=== PATIENT | male | born 1950 | race Caucasian/White ===

== ENCOUNTER 2017-04-13 08:18 | Emergency (ER) | payer OTHER ==
[~2017-04-13] VITALS: Ht 165.1 cm; Wt 51.5 kg
[~2017-04-13 08:18] MED LIST: ATOR20TA86 PO; INSLAN SQ; METO5TAB95 PO; PHOSLOC PO; PYRI50 PO; TIMO.5OS OU
[2017-04-13 08:37] LABS: GLUCOSE,POINT OF CARE 184 MG/DL (70-110)
[2017-04-13] MEDS ORDERED: AZIT250T6 PO (08:40)
[2017-04-13] MEDS ORDERED: CHLO25 PO (08:40)
[2017-04-13] MEDS ORDERED: INSU200I SQ (08:40)
[2017-04-13] MEDS ORDERED: OMEP20 PO (08:40)
[2017-04-13] MEDS ORDERED: ASPI-556 PO (08:40)
[2017-04-13] MEDS ORDERED: FLUT16H NASAL (08:40)
[2017-04-13] MEDS ORDERED: TRAM50TA4 PO (08:40)
[2017-04-13 10:31] VITALS: BP 156/74
[2017-04-14] MEDS ORDERED: IOVERSOL 350 MG/ML 100 ML VIAL ONE (06:33)
[2017-04-14] MEDS ORDERED: SODIUM CHLORIDE 0.9% 100 ML ONE (06:33)
== END 2017-04-13 10:51 | disposition home or self-care (01) ==
LOC: EMS 08:22
DX: R31.0 Gross hematuria (principal); E11.22 Type 2 diabetes mellitus with diabetic chronic kidney disease; I12.0 Hypertensive chronic kidney disease with stage 5 chronic kidney disease or end stage renal disease; N18.6 End stage renal disease; E78.00 Pure hypercholesterolemia, unspecified; Z99.2 Dependence on renal dialysis; Z79.4 Long term (current) use of insulin
CPT/HCPCS: 51701; 82962; 99283; J7050

== ENCOUNTER 2017-04-14 04:55 | Inpatient (IN) | payer OTHER ==
[~2017-04-14] VITALS: Ht 165.1 cm; Wt 57.9 kg
[~2017-04-14 04:55] MED LIST changes: +ASPI-556 PO; +AZIT250T6 PO; +CHLO25 PO; +FLUT16H NASAL; +INSU200I SQ; -METO5TAB95 PO; +OMEP20 PO; -PHOSLOC PO; -PYRI50 PO; +TRAM50TA4 PO
[2017-04-14 05:13] LABS: GLUCOSE,POINT OF CARE 213 MG/DL (70-110)
[2017-04-14] MEDS ORDERED: MORPHINE SULFATE 4 MG/ML SYRINGE IVP ONE (06:15)
[2017-04-14] MEDS ORDERED: BARIUM SULFATE 0.1% SUSPENSION 450 ML BOTTLE PO ONE (06:15)
[2017-04-14] MEDS ORDERED: ASPIRIN 81 MG CHEWABLE TABLET PO ONE (06:15)
[2017-04-14] MEDS ORDERED: ONDANSETRON HCL 4 MG/2 ML VIAL IVP ONE (06:15)
[2017-04-14 06:23] LABS: EOSINOPHILS % (AUTO) 0 % (1.0-6.0); LYMPHOCYTES % (AUTO) 7.9 % (22.0-44.0); MEAN CORPUSCULAR HEMOGLOBIN 28.6 pg (26.0-34.0); MEAN CORPUSCULAR HGB CONC 32.3 G/dL (31.0-37.0); MEAN CORPUSCULAR VOLUME 89 fL (80-100); MONOCYTES % (AUTO) 8.4 % (2.0-9.0); NEUTROPHILS # (AUTO) 10.3 K/uL (1.8-7.7); NEUTROPHILS % (AUTO) 83.8 % (40.0-70.0); PLATELET COUNT (AUTO) 301 K/uL (150-450); RED BLOOD CELL COUNT(AUTO) 3.49 MIL/uL (4.50-5.90); RED CELL DISTRIBUTION WIDTH 17.3 % (11.5-14.5); WHITE BLOOD COUNT (AUTO) 12.3 K/uL (4.5-11.0)
[2017-04-14 06:28] LABS: CALCIUM, TOTAL 8.9 mg/dL (8.8-10.5); CREATININE 7.96 mg/dL (0.60-1.30); POTASSIUM 4.8 mmol/L (3.5-5.1)
[2017-04-14 06:29] LABS: INR 1.1 (0.9-1.1)
[2017-04-14 06:33] LABS: BILIRUBIN,TOTAL 0.7 mg/dL (0.1-1.0)
[2017-04-14] MEDS ORDERED: CefTRIAXone 1 GM/DEXTROSE 50 ML IV ONE (08:15)
[2017-04-14] MEDS ORDERED: GENTAMICIN 60 MG/NACL ISO-OSM 50 ML IV ONE (09:00)
[2017-04-14] MEDS ORDERED: MetroNIDAZOLE 500 MG/NACL 100 ML IV ONE (09:00)
[2017-04-14] MEDS ORDERED: PIPERACILLIN/TAZO 3.375 GM/D5W 50 ML IV ONE (09:00)
[2017-04-14] MEDS ORDERED: ONDANSETRON HCL 4 MG/2 ML VIAL IVP PRN ×2 (09:45→11:15)
[2017-04-14] MEDS ORDERED: MORPHINE SULFATE 4 MG/ML SYRINGE IVP PRN (09:45)
[2017-04-14 10:08] LABS: APPEARANCE,URINE TURBID (CLEAR); GLUCOSE, URINE (UA) 100 mg/dL (NEGATIVE); KETONES,URINE 40 mg/dL (NEGATIVE); LEUKOCYTE ESTERASE ,URINE LARGE (NEGATIVE); OCCULT BLOOD,URINE LARGE (NEGATIVE); PROTEIN,URINE SEE CONFIRM (NEGATIVE)
[2017-04-14 10:11] LABS: ADD UA MICROSCOPIC YES
[2017-04-14] MEDS ORDERED: IOHEXOL 240 MG/ML 50 ML VIAL ONE (10:11)
[2017-04-14 10:19] LABS: RBC,URINE Full Field /HPF (0-2); SQUAMOUS EPITHELIAL CELL,UR Few /LPF (None Seen); SULFOSALICYLIC ACID,URINE 3+ (Negative); WBC,URINE >100 /HPF (0-5)
[2017-04-14 10:22] LABS: GLUCOSE,POINT OF CARE 225 MG/DL (70-110)
[2017-04-14] MEDS ORDERED: ACETAMINOPHEN 325 MG TABLET PO PRN (11:15)
[2017-04-14] MEDS ORDERED: ALBUTEROL SULFATE 2.5 MG/0.5 ML NEB SOLUTION NEB PRN (11:15)
[2017-04-14] MEDS ORDERED: MORPHINE SULFATE 2 MG/ML SYRINGE IVP PRN (11:15)
[2017-04-14] MEDS ORDERED: BISACODYL 10 MG RECTAL RECTAL SUPPOSITORY PR PRN (11:15)
[2017-04-14] MEDS ORDERED: OxyCODONE HCL/ACETAMINOPHEN 5-325 MG TABLET PO PRN (11:15)
[2017-04-14] MEDS ORDERED: PIPERACILLIN SODIUM/TAZOBACTAM 0.75 GM in DEXTROSE 5%-WATER 50 ML IV PRN (11:30)
[2017-04-14] MEDS ORDERED: DEXTROSE 50%-WATER 25 GM/50 ML SYRINGE IVP PRN (11:30)
[2017-04-14] MEDS ORDERED: LIDOCAINE HCL/PF 1% 2 ML VIAL INJ ONE (12:00)
[2017-04-14] MEDS ORDERED: FentaNYL CITRATE-PF 100 MCG/2 ML VIAL ONE (12:51)
[2017-04-14] MEDS ORDERED: MIDAZOLAM HCL 2 MG/2 ML VIAL ONE (12:51)
[2017-04-14] MEDS ORDERED: FentaNYL CITRATE-PF 100 MCG/2 ML VIAL IVP ONE (12:59)
[2017-04-14] MEDS ORDERED: MIDAZOLAM HCL 2 MG/2 ML VIAL IVP ONE (12:59)
[2017-04-14] MEDS ORDERED: LIDOCAINE HCL/PF 1% 2 ML VIAL ID PRN (15:15)
[2017-04-14] MEDS ORDERED: ALBUMIN HUMAN 25%-12.5GM/50ML IV BOTTLE IV PRN (15:15)
[2017-04-14] MEDS ORDERED: MANNITOL 25%-12.5 GM/50 ML VIAL IVP PRN (15:15)
[2017-04-14 16:00] VITALS: BP 136/58
[2017-04-14] MEDS: PIPERACILLIN SODIUM/TAZOBACTAM 2.25 GM in DEXTROSE 5%-WATER 50 ML IV SCH (17:40)
[2017-04-14] MEDS ORDERED: SODIUM CHLORIDE 0.9% 250 ML IV ONE (17:40)
[2017-04-14 20:00] VITALS: BP 200/83
[2017-04-14 20:47] LABS: GLUCOSE,POINT OF CARE 113 MG/DL (70-110)
[2017-04-14] MEDS: DOCUSATE SODIUM 100 MG CAPSULE PO SCH (21:43)
[2017-04-14] MEDS: HEPARIN SODIUM,PORCINE 5,000 UNITS/ML VIAL SQ SCH (21:43)
[2017-04-14] MEDS: LEVOFLOXACIN 250 MG/D5% WATER 50 ML IV SCH (21:43)
[2017-04-14] MEDS: INSULIN ASPART 100 UNITS/ML SQ PRN (22:06)
[2017-04-15] VITALS: BP 142/57
[2017-04-15] MEDS: PIPERACILLIN SODIUM/TAZOBACTAM 2.25 GM in DEXTROSE 5%-WATER 50 ML IV SCH ×3 (01:14→16:38)
[2017-04-15 04:00] VITALS: BP 167/77
[2017-04-15 05:38] LABS: CALCIUM, TOTAL 8.5 mg/dL (8.8-10.5); CREATININE 3.82 mg/dL (0.60-1.30); MAGNESIUM 1.9 mg/dL (1.80-2.40); PHOSPHORUS 3.4 mg/dL (2.5-4.9); POTASSIUM 4.7 mmol/L (3.5-5.1)
[2017-04-15 05:39] LABS: BASOPHILS % (AUTO) 0.2 % (0.0-2.0); EOSINOPHILS % (AUTO) 0 % (1.0-6.0); HEMATOCRIT 31.9 % (41-53); HEMOGLOBIN 9.9 g/dL (13.5-17.5); LYMPHOCYTES # (AUTO) 1.2 K/uL (1.0-4.8); LYMPHOCYTES % (AUTO) 8.7 % (22.0-44.0); MEAN CORPUSCULAR HEMOGLOBIN 27.7 pg (26.0-34.0); MEAN CORPUSCULAR HGB CONC 31.2 G/dL (31.0-37.0); MEAN CORPUSCULAR VOLUME 89 fL (80-100); MONOCYTES # (AUTO) 0.9 K/uL (0.1-1.0); MONOCYTES % (AUTO) 6.8 % (2.0-9.0); NEUTROPHILS # (AUTO) 11.2 K/uL (1.8-7.7); NEUTROPHILS % (AUTO) 84.3 % (40.0-70.0); PLATELET COUNT (AUTO) 273 K/uL (150-450); RED BLOOD CELL COUNT(AUTO) 3.58 MIL/uL (4.50-5.90); RED CELL DISTRIBUTION WIDTH 17.7 % (11.5-14.5); WHITE BLOOD COUNT (AUTO) 13.3 K/uL (4.5-11.0)
[2017-04-15 06:41] LABS: GLUCOSE COMMENT 1 Received Meds; GLUCOSE,POINT OF CARE 185 MG/DL (70-110)
[2017-04-15 06:42] LABS: GLUCOSE COMMENT 1 Received Meds; GLUCOSE,POINT OF CARE 152 MG/DL (70-110)
[2017-04-15 08:00] VITALS: BP 137/66
[2017-04-15] MEDS: DOCUSATE SODIUM 100 MG CAPSULE PO SCH ×2 (08:52→21:00)
[2017-04-15] MEDS: MetroNIDAZOLE 250 MG/NACL 50 ML IV SCH ×2 (08:52→20:33)
[2017-04-15] MEDS: HEPARIN SODIUM,PORCINE 5,000 UNITS/ML VIAL SQ SCH ×2 (08:53→21:09)
[2017-04-15] MEDS: INSULIN ASPART 100 UNITS/ML SQ PRN ×2 (08:54→18:09)
[2017-04-15] MEDS ORDERED: -HEMODIALYSIS NOTE- MISC SCH (09:00)
[2017-04-15] MEDS ORDERED: PANTOPRAZOLE SODIUM 40 MG DR TABLET PO SCH (09:00)
[2017-04-15 10:32] LABS: GLUCOSE,POINT OF CARE 142 MG/DL (70-110)
[2017-04-15 12:00] VITALS: BP 137/66
[2017-04-15 12:07] LABS: GLUCOSE,POINT OF CARE 252 MG/DL (70-110)
[2017-04-15 16:00] VITALS: BP 137/66
[2017-04-15 19:12] LABS: GLUCOSE,POINT OF CARE 253 MG/DL (70-110)
[2017-04-15] MEDS: LEVOFLOXACIN 250 MG/D5% WATER 50 ML IV SCH (21:07)
== END 2017-04-15 21:25 | disposition short-term general hospital (02) | DRG 871 ==
LOC: EMS 04:56 → 6N 08:15 → ICU 11:41
PROVIDERS: ADMIT Internal Medicine; ATTEND Internal Medicine
PROC: 0T9030Z Drainage of Right Kidney with Drainage Device, Percutaneous Approach (ICD-10-PCS; principal; 2017-04-14)
PROC: 5A1D00Z (ICD-10-PCS; 2017-04-14)
DX: A41.9 Sepsis, unspecified organism (principal); E43 Unspecified severe protein-calorie malnutrition; N18.6 End stage renal disease; I12.0 Hypertensive chronic kidney disease with stage 5 chronic kidney disease or end stage renal disease; N11.1 Chronic obstructive pyelonephritis; N20.2 Calculus of kidney with calculus of ureter; E11.22 Type 2 diabetes mellitus with diabetic chronic kidney disease; M06.9 Rheumatoid arthritis, unspecified; E11.319 Type 2 diabetes mellitus with unspecified diabetic retinopathy without macular edema; E78.00 Pure hypercholesterolemia, unspecified; M19.90 Unspecified osteoarthritis, unspecified site; R31.0 Gross hematuria; I25.10 Atherosclerotic heart disease of native coronary artery without angina pectoris; H54.42 Blindness, left eye, normal vision right eye; D64.9 Anemia, unspecified; E78.5 Hyperlipidemia, unspecified; Z74.01 Bed confinement status; Z98.49 Cataract extraction status, unspecified eye; Z79.4 Long term (current) use of insulin; Z79.82 Long term (current) use of aspirin; Z79.899 Other long term (current) drug therapy; Z68.21 Body mass index [BMI] 21.0-21.9, adult; Z99.2 Dependence on renal dialysis
CPT/HCPCS: 36245; 51701; 74176; 74177; 75989; 76937; 76942; 82962; 83605; 83735; 84100; 87040; 87081; 87086; 87340; 93005; 96365; 96367; 96368; 99291; J0696; J1580; J1644; J1956; J2250; J2270; J2405; J2543; J3010; J3490; J7050; J7060; Q9966

== ENCOUNTER 2017-08-26 11:13 | Inpatient (IN) | payer OTHER ==
[~2017-08-26] VITALS: Ht 165.1 cm; Wt 47.8 kg
[~2017-08-26 11:13] MED LIST changes: -AZIT250T6 PO; +AZIT250T9 PO
[2017-08-26 11:27] LABS: GLUCOSE,POINT OF CARE 118 MG/DL (70-110)
[2017-08-26 12:42] LABS: BASOPHILS % (AUTO) 0.2 % (0.0-2.0); EOSINOPHILS % (AUTO) 0 % (1.0-6.0); HEMATOCRIT 36.9 % (41-53); HEMOGLOBIN 11.5 g/dL (13.5-17.5); LYMPHOCYTES # (AUTO) 0.4 K/uL (1.0-4.8); LYMPHOCYTES % (AUTO) 5.3 % (22.0-44.0); MEAN CORPUSCULAR HEMOGLOBIN 25.8 pg (26.0-34.0); MEAN CORPUSCULAR HGB CONC 31.3 G/dL (31.0-37.0); MEAN CORPUSCULAR VOLUME 82 fL (80-100); MONOCYTES # (AUTO) 0.6 K/uL (0.1-1.0); MONOCYTES % (AUTO) 9.1 % (2.0-9.0); NEUTROPHILS # (AUTO) 6.1 K/uL (1.8-7.7); PLATELET COUNT (AUTO) 166 K/uL (150-450); RED BLOOD CELL COUNT(AUTO) 4.48 MIL/uL (4.50-5.90); RED CELL DISTRIBUTION WIDTH 21.4 % (11.5-14.5); WHITE BLOOD COUNT (AUTO) 7.1 K/uL (4.5-11.0)
[2017-08-26 12:45] LABS: NEUTROPHILS % (AUTO) 85.4 % (40.0-70.0)
[2017-08-26 12:52] LABS: ANION GAP 12 mmol/L (8-16); CALCIUM, TOTAL 9.9 mg/dL (8.8-10.5); CARBON DIOXIDE 28 mmol/L (22-29); CHLORIDE 90 mmol/L (98-107); CREATININE 3.75 mg/dL (0.60-1.30); GLOMERULAR FILTR. RATE CALC 16 mL/min (>60); POTASSIUM 5.6 mmol/L (3.5-5.1); SODIUM SERUM 130 mmol/L (136-145); UREA NITROGEN, BLOOD 35 mg/dL (7-18)
[2017-08-26 12:59] LABS: ALANINE AMINOTRANSFERASE 12 U/L (12-78); ALBUMIN 1.8 g/dL (3.4-5.0); ASPARTATE AMINOTRANSFERASE 51 U/L (15-37); BILIRUBIN,TOTAL 0.8 mg/dL (0.1-1.0); CREATINE KINASE, TOTAL 73 U/L (39-308); TOTAL PROTEIN, SERUM 8.5 g/dL (6.4-8.2)
[2017-08-26 13:01] LABS: RBC MORPHOLOGY COMMENT ABNORMAL RBC MORPH
[2017-08-26 13:13] LABS: B-TYPE NATRIURETIC PEPTIDE 638 pg/mL (0-100)
[2017-08-26 13:22] LABS: LACTIC ACID 2.4 mmol/L (0.4-2.0)
[2017-08-26] MEDS ORDERED: LEVOFLOXACIN 500 MG/D5% WATER 100 ML IV ONE (13:30)
[2017-08-26] MEDS ORDERED: PIPERACILLIN/TAZO 3.375 GM/D5W 50 ML IV ONE (13:45)
[2017-08-26] MEDS ORDERED: OxyCODONE HCL/ACETAMINOPHEN 5-325 MG TABLET PO PRN (14:30)
[2017-08-26] MEDS ORDERED: BISACODYL 10 MG RECTAL RECTAL SUPPOSITORY PR PRN (14:30)
[2017-08-26] MEDS ORDERED: ACETAMINOPHEN 325 MG TABLET PO PRN ×2 (14:30→15:30)
[2017-08-26] MEDS ORDERED: ALBUTEROL SULFATE 2.5 MG/0.5 ML NEB SOLUTION NEB PRN (14:30)
[2017-08-26] MEDS ORDERED: DEXTROSE 50%-WATER 25 GM/50 ML SYRINGE IVP PRN (14:30)
[2017-08-26 14:43] LABS: REFLEX LACTIC ACID? YES YES
[2017-08-26] MEDS ORDERED: EPOETIN ALFA 10,000 UNITS/ML 2 ML VIAL SQ SCH (14:45)
[2017-08-26] MEDS ORDERED: 0.9% SODIUM CHLORIDE 10 ML SYRINGE IVP PRN (15:30)
[2017-08-26] MEDS: SEVELAMER CARBONATE 800 MG TABLET PO SCH (16:44)
[2017-08-26 18:21] VITALS: BP 148/78
[2017-08-26 19:27] VITALS: BP 153/71
[2017-08-26] MEDS: HEPARIN SODIUM,PORCINE 5,000 UNITS/ML VIAL SQ SCH (20:38)
[2017-08-26] MEDS: ATORVASTATIN CALCIUM 20 MG TABLET PO SCH (20:38)
[2017-08-26] MEDS: DOCUSATE SODIUM 100 MG CAPSULE PO SCH (20:38)
[2017-08-26 23:50] VITALS: BP 161/86
[2017-08-27 04:41] VITALS: BP 163/78
[2017-08-27 06:54] LABS: BASOPHILS % (AUTO) 0.3 % (0.0-2.0); EOSINOPHILS % (AUTO) 0 % (1.0-6.0); HEMATOCRIT 40.4 % (41-53); HEMOGLOBIN 12.9 g/dL (13.5-17.5); LYMPHOCYTES # (AUTO) 0.4 K/uL (1.0-4.8); LYMPHOCYTES % (AUTO) 4.5 % (22.0-44.0); MEAN CORPUSCULAR HGB CONC 31.8 G/dL (31.0-37.0); MEAN CORPUSCULAR VOLUME 82 fL (80-100); MONOCYTES # (AUTO) 0.5 K/uL (0.1-1.0); MONOCYTES % (AUTO) 6.8 % (2.0-9.0); PLATELET COUNT (AUTO) 155 K/uL (150-450); RED BLOOD CELL COUNT(AUTO) 4.94 MIL/uL (4.50-5.90); RED CELL DISTRIBUTION WIDTH 21.8 % (11.5-14.5); WHITE BLOOD COUNT (AUTO) 7.9 K/uL (4.5-11.0)
[2017-08-27 07:01] LABS: CALCIUM, TOTAL 9.3 mg/dL (8.8-10.5); CREATININE 4.86 mg/dL (0.60-1.30); POTASSIUM 4.6 mmol/L (3.5-5.1)
[2017-08-27 07:01] LABS: NEUTROPHILS % (AUTO) 88.4 % (40.0-70.0)
[2017-08-27 07:14] VITALS: BP 128/60
[2017-08-27] MEDS: DOCUSATE SODIUM 100 MG CAPSULE PO SCH ×2 (08:23→20:30)
[2017-08-27] MEDS: SEVELAMER CARBONATE 800 MG TABLET PO SCH ×4 (08:23→18:02)
[2017-08-27] MEDS: ASPIRIN 81 MG CHEWABLE TABLET PO SCH (08:24)
[2017-08-27] MEDS: PANTOPRAZOLE SODIUM 40 MG DR TABLET PO SCH (08:24)
[2017-08-27] MEDS: VITAMIN B COMP/VIT C/FOLIC ACID CAPSULE PO SCH (08:24)
[2017-08-27] MEDS: HEPARIN SODIUM,PORCINE 5,000 UNITS/ML VIAL SQ SCH ×2 (08:24→20:35)
[2017-08-27] MEDS ORDERED: SODIUM CHLORIDE 0.9% 2,000 ML IV ONE (08:47)
[2017-08-27 08:55] LABS: RBC MORPHOLOGY COMMENT ABNORMAL RBC MORPH
[2017-08-27 11:40] VITALS: BP 130/47
[2017-08-27] MEDS ORDERED: SODIUM CHLORIDE 0.9% 250 ML IV ONE (14:16)
[2017-08-27] MEDS: PIPERACILLIN SODIUM/TAZOBACTAM 2.25 GM in DEXTROSE 5%-WATER 50 ML IV SCH ×2 (14:21→22:26)
[2017-08-27 15:19] VITALS: BP 140/75
[2017-08-27 17:33] LABS: GLUCOSE,POINT OF CARE 137 MG/DL (70-110)
[2017-08-27 17:33] LABS: GLUCOSE,POINT OF CARE 110 MG/DL (70-110)
[2017-08-27 19:59] VITALS: BP 115/53
[2017-08-27] MEDS: ATORVASTATIN CALCIUM 20 MG TABLET PO SCH (20:30)
[2017-08-28] VITALS (7 sets, daily range): BP systolic 126–146; BP diastolic 40–79
[2017-08-28] MEDS: PIPERACILLIN SODIUM/TAZOBACTAM 2.25 GM in DEXTROSE 5%-WATER 50 ML IV SCH ×3 (05:36→20:38)
[2017-08-28 05:52] LABS: BASOPHILS % (AUTO) 0.3 % (0.0-2.0); EOSINOPHILS % (AUTO) 0 % (1.0-6.0); HEMATOCRIT 36.5 % (41-53); HEMOGLOBIN 11.7 g/dL (13.5-17.5); LYMPHOCYTES # (AUTO) 0.4 K/uL (1.0-4.8); LYMPHOCYTES % (AUTO) 6.4 % (22.0-44.0); MEAN CORPUSCULAR HEMOGLOBIN 26.2 pg (26.0-34.0); MEAN CORPUSCULAR HGB CONC 32.1 G/dL (31.0-37.0); MEAN CORPUSCULAR VOLUME 82 fL (80-100); MONOCYTES # (AUTO) 0.6 K/uL (0.1-1.0); MONOCYTES % (AUTO) 9.5 % (2.0-9.0); NEUTROPHILS # (AUTO) 5.3 K/uL (1.8-7.7); NEUTROPHILS % (AUTO) 83.8 % (40.0-70.0); PLATELET COUNT (AUTO) 119 K/uL (150-450); RED BLOOD CELL COUNT(AUTO) 4.47 MIL/uL (4.50-5.90); RED CELL DISTRIBUTION WIDTH 21.3 % (11.5-14.5); WHITE BLOOD COUNT (AUTO) 6.4 K/uL (4.5-11.0)
[2017-08-28 06:13] LABS: CALCIUM, TOTAL 9.6 mg/dL (8.8-10.5); CREATININE 3.6 mg/dL (0.60-1.30); POTASSIUM 4.4 mmol/L (3.5-5.1)
[2017-08-28] MEDS: SEVELAMER CARBONATE 800 MG TABLET PO SCH ×3 (08:25→17:42)
[2017-08-28] MEDS: ASPIRIN 81 MG CHEWABLE TABLET PO SCH (08:25)
[2017-08-28] MEDS: VITAMIN B COMP/VIT C/FOLIC ACID CAPSULE PO SCH (08:25)
[2017-08-28] MEDS: PANTOPRAZOLE SODIUM 40 MG DR TABLET PO SCH (08:26)
[2017-08-28] MEDS: HEPARIN SODIUM,PORCINE 5,000 UNITS/ML VIAL SQ SCH ×2 (08:26→20:37)
[2017-08-28] MEDS: DOCUSATE SODIUM 100 MG CAPSULE PO SCH ×2 (08:26→20:37)
[2017-08-28] MEDS ORDERED: PREDAOS OS (11:21)
[2017-08-28] MEDS: INSULIN ASPART 100 UNITS/ML SQ PRN (11:52)
[2017-08-28] MEDS: ATORVASTATIN CALCIUM 20 MG TABLET PO SCH (20:37)
[2017-08-28] MEDS ORDERED: GuaiFENesin/CODEINE [SUGAR FREE] 200-20MG/10 ML SYRUP UDCUP PO PRN (22:00)
[2017-08-29 04:04] VITALS: BP 130/55
[2017-08-29] MEDS: PIPERACILLIN SODIUM/TAZOBACTAM 2.25 GM in DEXTROSE 5%-WATER 50 ML IV SCH ×3 (05:06→23:55)
[2017-08-29 07:12] VITALS: BP 131/43
[2017-08-29 07:18] VITALS: BP 137/79
[2017-08-29 07:18] LABS: GLUCOSE,POINT OF CARE 130 MG/DL (70-110)
[2017-08-29] MEDS: SEVELAMER CARBONATE 800 MG TABLET PO SCH ×3 (08:44→17:47)
[2017-08-29] MEDS: VITAMIN B COMP/VIT C/FOLIC ACID CAPSULE PO SCH (08:44)
[2017-08-29] MEDS: PANTOPRAZOLE SODIUM 40 MG DR TABLET PO SCH (08:44)
[2017-08-29] MEDS: DOCUSATE SODIUM 100 MG CAPSULE PO SCH ×2 (08:45→20:15)
[2017-08-29] MEDS: ASPIRIN 81 MG CHEWABLE TABLET PO SCH (08:45)
[2017-08-29] MEDS: HEPARIN SODIUM,PORCINE 5,000 UNITS/ML VIAL SQ SCH ×2 (08:45→20:12)
[2017-08-29 11:17] VITALS: BP 137/48
[2017-08-29] MEDS: NYSTATIN 500,000 UNITS/5 ML SUSPENSION UDCUP PO SCH ×3 (12:10→23:55)
[2017-08-29 15:30] VITALS: BP 144/51
[2017-08-29] MEDS: INSULIN ASPART 100 UNITS/ML SQ PRN ×2 (17:48→20:23)
[2017-08-29 19:59] VITALS: BP 146/67
[2017-08-29] MEDS: ATORVASTATIN CALCIUM 20 MG TABLET PO SCH (20:13)
[2017-08-30 00:04] VITALS: BP 137/50
[2017-08-30 04:57] VITALS: BP 158/72
[2017-08-30] MEDS: NYSTATIN 500,000 UNITS/5 ML SUSPENSION UDCUP PO SCH ×2 (05:17→14:35)
[2017-08-30] MEDS: PIPERACILLIN SODIUM/TAZOBACTAM 2.25 GM in DEXTROSE 5%-WATER 50 ML IV SCH ×2 (05:18→14:34)
[2017-08-30] MEDS: INSULIN ASPART 100 UNITS/ML SQ PRN (06:28)
[2017-08-30 07:09] VITALS: BP 131/70
[2017-08-30] MEDS: SEVELAMER CARBONATE 800 MG TABLET PO SCH ×2 (07:30→11:30)
[2017-08-30 09:59] LABS: GLUCOSE,POINT OF CARE 129 MG/DL (70-110)
[2017-08-30 09:59] LABS: GLUCOSE,POINT OF CARE 115 MG/DL (70-110)
[2017-08-30 09:59] LABS: GLUCOSE COMMENT 1 Received Meds; GLUCOSE,POINT OF CARE 171 MG/DL (70-110)
[2017-08-30 10:34] LABS: GLUCOSE COMMENT 1 Received Meds; GLUCOSE,POINT OF CARE 161 MG/DL (70-110)
[2017-08-30 10:37] LABS: GLUCOSE COMMENT 1 Received Meds; GLUCOSE,POINT OF CARE 145 MG/DL (70-110)
[2017-08-30] MEDS ORDERED: LEVO250T58 PO (11:23)
[2017-08-30 11:52] VITALS: BP 112/30
[2017-08-30] MEDS: PANTOPRAZOLE SODIUM 40 MG DR TABLET PO SCH (14:33)
[2017-08-30] MEDS: VITAMIN B COMP/VIT C/FOLIC ACID CAPSULE PO SCH (14:33)
[2017-08-30] MEDS: HEPARIN SODIUM,PORCINE 5,000 UNITS/ML VIAL SQ SCH (14:34)
[2017-08-30] MEDS: DOCUSATE SODIUM 100 MG CAPSULE PO SCH (14:34)
[2017-08-30] MEDS: ASPIRIN 81 MG CHEWABLE TABLET PO SCH (14:34)
[2017-08-30] MEDS ORDERED: LIDOCAINE HCL/PF 1% 2 ML VIAL IM ONE (16:19)
[2017-09-02 19:52] LABS: GLUCOSE,POINT OF CARE 97 MG/DL (70-110)
[2017-09-02 19:53] LABS: GLUCOSE,POINT OF CARE 134 MG/DL (70-110)
[2017-09-02 19:53] LABS: GLUCOSE,POINT OF CARE 140 MG/DL (70-110)
[2017-09-02 19:57] LABS: GLUCOSE,POINT OF CARE 138 MG/DL (70-110)
[2017-09-02 19:58] LABS: GLUCOSE,POINT OF CARE 137 MG/DL (70-110)
[2017-09-02 19:58] LABS: GLUCOSE,POINT OF CARE 134 MG/DL (70-110)
[2017-09-02 19:58] LABS: GLUCOSE COMMENT 1 Received Meds; GLUCOSE,POINT OF CARE 209 MG/DL (70-110)
== END 2017-08-30 16:20 | disposition home or self-care (01) | DRG 193 ==
LOC: EMS 11:14 → 5S 17:16 → 5N 08-29 20:30
PROVIDERS: ADMIT Internal Medicine; ATTEND Internal Medicine
DX: J18.9 Pneumonia, unspecified organism (principal); E43 Unspecified severe protein-calorie malnutrition; I13.2 Hypertensive heart and chronic kidney disease with heart failure and with stage 5 chronic kidney disease, or end stage renal disease; N18.6 End stage renal disease; L89.93 Pressure ulcer of unspecified site, stage 3; E87.2 Acidosis; N12 Tubulo-interstitial nephritis, not specified as acute or chronic; I12.0 Hypertensive chronic kidney disease with stage 5 chronic kidney disease or end stage renal disease; Z68.1 Body mass index [BMI] 19.9 or less, adult; E11.22 Type 2 diabetes mellitus with diabetic chronic kidney disease; R62.7 Adult failure to thrive; D64.9 Anemia, unspecified; E78.5 Hyperlipidemia, unspecified; E83.52 Hypercalcemia; E87.5 Hyperkalemia; H54.8 Legal blindness, as defined in USA; I50.9 Heart failure, unspecified; M06.9 Rheumatoid arthritis, unspecified; R09.02 Hypoxemia; Z79.4 Long term (current) use of insulin; Z82.49 Family history of ischemic heart disease and other diseases of the circulatory system; Z83.3 Family history of diabetes mellitus; Z87.01 Personal history of pneumonia (recurrent); Z87.440 Personal history of urinary (tract) infections; Z99.2 Dependence on renal dialysis; B96.5 Pseudomonas (aeruginosa) (mallei) (pseudomallei) as the cause of diseases classified elsewhere
CPT/HCPCS: 74176; 76770; 82962; 83605; 87040; 87070; 87081; 87205; 87340; 90935; 92610; 93005; 96365; 96366; 96368; 97163; 97166; 99291; J1644; J1956; J2543; J3490; J7030; J7050; J7060

== ENCOUNTER 2017-10-06 13:28 | Emergency (ER) | payer OTHER ==
[~2017-10-06] VITALS: Ht 165.1 cm; Wt 63.6 kg
[~2017-10-06 13:28] MED LIST changes: -AZIT250T9 PO; +LEVO250T58 PO; +PREDAOS OS
[2017-10-06 14:39] LABS: BASOPHILS % (AUTO) 0.2 % (0.0-2.0); EOSINOPHILS % (AUTO) 0.1 % (1.0-6.0); HEMATOCRIT 28.9 % (41-53); HEMOGLOBIN 9.4 g/dL (13.5-17.5); LYMPHOCYTES # (AUTO) 0.7 K/uL (1.0-4.8); LYMPHOCYTES % (AUTO) 14.5 % (22.0-44.0); MEAN CORPUSCULAR HEMOGLOBIN 27.8 pg (26.0-34.0); MEAN CORPUSCULAR HGB CONC 32.4 G/dL (31.0-37.0); MEAN CORPUSCULAR VOLUME 86 fL (80-100); MONOCYTES # (AUTO) 0.6 K/uL (0.1-1.0); MONOCYTES % (AUTO) 12.1 % (2.0-9.0); NEUTROPHILS # (AUTO) 3.7 K/uL (1.8-7.7); NEUTROPHILS % (AUTO) 73.1 % (40.0-70.0); PLATELET COUNT (AUTO) 198 K/uL (150-450); RED BLOOD CELL COUNT(AUTO) 3.37 MIL/uL (4.50-5.90)
[2017-10-06 14:50] LABS: CALCIUM, TOTAL 10.2 mg/dL (8.8-10.5); CREATININE 2.79 mg/dL (0.60-1.30); POTASSIUM 4.2 mmol/L (3.5-5.1)
[2017-10-06 14:56] LABS: ALBUMIN 2.1 g/dL (3.4-5.0); BILIRUBIN,TOTAL 0.4 mg/dL (0.1-1.0); TOTAL PROTEIN, SERUM 8.6 g/dL (6.4-8.2)
[2017-10-06] MEDS ORDERED: SODIUM PHOS/SODIUM BIPHOS 133 ML ENEMA PR ONE (15:00)
[2017-10-06 15:17] LABS: INR 1.1 (0.9-1.1); PROTHROMBIN TIME 11.4 SEC (9.4-11.6)
[2017-10-06 16:39] VITALS: BP 174/60
[2017-10-06 19:11] LABS: RBC MORPHOLOGY COMMENT DIMORPHIC RBC
== END 2017-10-06 17:04 | disposition home or self-care (01) ==
LOC: EMS 13:30
DX: K59.00 Constipation, unspecified (principal); I12.0 Hypertensive chronic kidney disease with stage 5 chronic kidney disease or end stage renal disease; E11.22 Type 2 diabetes mellitus with diabetic chronic kidney disease; N18.6 End stage renal disease; E78.00 Pure hypercholesterolemia, unspecified; Z99.2 Dependence on renal dialysis; Z79.4 Long term (current) use of insulin; Z79.82 Long term (current) use of aspirin
CPT/HCPCS: 74022; 93005; 99285

== ENCOUNTER 2017-10-27 23:37 | Emergency (ER) | payer OTHER ==
[~2017-10-27] VITALS: Ht 165.1 cm; Wt 49.1 kg
[2017-10-27 23:52] LABS: GLUCOSE,POINT OF CARE 112 MG/DL (70-110)
[2017-10-28] MEDS ORDERED: LORazepam 1 MG TABLET PO ONE (00:45)
[2017-10-28 00:59] LABS: BASOPHILS % (AUTO) 0.4 % (0.0-2.0); EOSINOPHILS % (AUTO) 0.3 % (1.0-6.0); HEMATOCRIT 23.9 % (41-53); HEMOGLOBIN 7.7 g/dL (13.5-17.5); LYMPHOCYTES # (AUTO) 1.1 K/uL (1.0-4.8); LYMPHOCYTES % (AUTO) 28.1 % (22.0-44.0); MEAN CORPUSCULAR HEMOGLOBIN 29.4 pg (26.0-34.0); MEAN CORPUSCULAR HGB CONC 32.2 G/dL (31.0-37.0); MEAN CORPUSCULAR VOLUME 91 fL (80-100); MONOCYTES # (AUTO) 0.5 K/uL (0.1-1.0); MONOCYTES % (AUTO) 13.6 % (2.0-9.0); NEUTROPHILS # (AUTO) 2.2 K/uL (1.8-7.7); NEUTROPHILS % (AUTO) 57.6 % (40.0-70.0); PLATELET COUNT (AUTO) 153 K/uL (150-450); RED BLOOD CELL COUNT(AUTO) 2.61 MIL/uL (4.50-5.90); RED CELL DISTRIBUTION WIDTH 22.8 % (11.5-14.5); WHITE BLOOD COUNT (AUTO) 3.8 K/uL (4.5-11.0)
[2017-10-28 01:08] LABS: CALCIUM, TOTAL 8.3 mg/dL (8.8-10.5); CREATININE 2.86 mg/dL (0.60-1.30); POTASSIUM 4.4 mmol/L (3.5-5.1)
[2017-10-28 01:13] LABS: ALBUMIN 2.1 g/dL (3.4-5.0); BILIRUBIN,TOTAL 0.3 mg/dL (0.1-1.0); TOTAL PROTEIN, SERUM 7.7 g/dL (6.4-8.2)
[2017-10-28 03:37] VITALS: BP 128/74
== END 2017-10-28 03:38 | disposition home or self-care (01) ==
LOC: EMS 23:38
DX: F41.9 Anxiety disorder, unspecified (principal); G47.00 Insomnia, unspecified; R05 Cough; E78.00 Pure hypercholesterolemia, unspecified; I12.0 Hypertensive chronic kidney disease with stage 5 chronic kidney disease or end stage renal disease; E11.22 Type 2 diabetes mellitus with diabetic chronic kidney disease; N18.6 End stage renal disease; Z99.2 Dependence on renal dialysis; Z79.4 Long term (current) use of insulin
CPT/HCPCS: 82962; 99285